=== PATIENT | male | born 1975 | race Caucasian/White ===

== ENCOUNTER 2021-09-18 14:20 | Outpatient (CLI) | payer OTHER, SELFPAY ==
[2021-09-18 17:35] LABS: SARS-CoV-2 Ag Positive (Negative)
== END 2021-09-18 14:21 | disposition home or self-care (01) ==
LOC: CHSLAB 14:25
PROVIDERS: PCP Family Medicine; Visit Provider Family Medicine
DX: U07.1 COVID-19 (principal); R05.9 Cough, unspecified
CPT/HCPCS: 87426; C9803